=== PATIENT | male | born 1975 | race Two or more races ===

== ENCOUNTER 2019-07-20 00:04 | Emergency (ER) | payer SELFPAY ==
[~2019-07-20] VITALS: Ht 172.7 cm; Wt 80.7 kg
[2019-07-20 00:08] VITALS: BP 125/80
--- NOTE | 2019-07-20 00:13 | NUR ---
PT AMBULATED TO BED 04 WITH STEADY GAIT.
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
--- NOTE | 2019-07-20 00:18 | NUR ---
Dr. Garner examining patient.
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
--- NOTE | 2019-07-20 00:30 | NUR ---
PT TRANSPORTED TO X-RAY VIA WHEELCHAIR
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
--- NOTE | 2019-07-20 01:20 | NUR ---
Patient discharged with v/s stable. Written and verbal after care instructions given and explained. Patient alert, oriented and verbalized understanding of instructions. Ambulatory with steady gait. All questions addressed prior to discharge. ID band removed. Patient advised to follow up with PMD. Patient educated on indication of medication including possible reaction and side effects. Opportunity to ask questions provided and answered. Pt is [id number], ambulatory, no dizziness or any paim in origin noted. pt d/c walking in steady gait.
[2019-07-20 01:21] VITALS: BP 125/83
== END 2019-07-20 01:20 | disposition home or self-care (01) ==
LOC: MED 00:04
DX: R07.9 Chest pain, unspecified (principal); F17.200 Nicotine dependence, unspecified, uncomplicated; Y04.0XXA Assault by unarmed brawl or fight, initial encounter; Y93.89 Activity, other specified; Y92.89 Other specified places as the place of occurrence of the external cause; Y99.8 Other external cause status
CPT/HCPCS: 71101; 93005; 99283